=== PATIENT | male | born 1995 | race Caucasian/White ===

== ENCOUNTER 2017-01-04 21:10 | Emergency (ER) | payer OTHER ==
[2017-01-04 21:22] VITALS: TEMP 36.8
[2017-01-04] MEDS ORDERED: LORAZEPAM 2 MG/ML 1 ML VIAL IM STA (21:36)
[2017-01-04] MEDS ORDERED: HALOPERIDOL LACTATE 5 MG/ML 1 ML VIAL IM STA (21:36)
[2017-01-04 21:40] VITALS: O2SAT 95
--- NOTE | 2017-01-04 22:19 | DIAGNOSTIC IMAGING REPORT ---
CT OF THE HEAD WITHOUT CONTRAST CLINICAL HISTORY: ETOH. Possible head injury. COMPARISON STUDY: No previous studies for comparison. CT DOSE: 601.98 mGy.cm TECHNIQUE: Helical axial images of the head were obtained without IV contrast. Automated exposure control was utilized for the study. A dose lowering technique was utilized adhering to the principles of ALARA. FINDINGS: Positioning on this exam was difficult. No acute intracranial hemorrhage, midline shift or mass effect is present. Basilar cisterns are patent. There are no extra-axial collections. Santiago-white differentiation is maintained. Sensitivity for detection of nondisplaced calvarial fractures is diminished but none are identified. Visualized portions of the sinuses and the mastoid air cells are clear. IMPRESSION: 1. Study mildly compromised given difficulty positioning. No acute intracranial findings. 2. No calvarial fracture identified although sensitivity for detection of nondisplaced calvarial fractures is diminished on this study. Electronically signed by: Azam Rosales M.D. 01/04/2017 10:17 PM Dictated Date/Time: 01/04/2017 10:14 PM
[2017-01-04 22:20] LABS: BLOOD UREA NITROGEN 6 mg/dl (7-18); BUN/CREATININE RATIO 6.9 (10-20); CALCIUM 9.1 mg/dl (8.5-10.1); CARBON DIOXIDE 26 mmol/L (21-32); CHLORIDE 104 mmol/L (98-107); CREATININE 0.86 mg/dl (0.60-1.40); GLUCOSE 120 mg/dl (70-99); POTASSIUM 3.1 mmol/L (3.5-5.1); SODIUM 138 mmol/L (136-145)
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
[2017-01-05 05:44] VITALS: BP 99/64; PULSE 93; O2SAT 95
== END 2017-01-05 06:02 | disposition home or self-care (01) ==
LOC: EDBD 21:10 → C.EDA 21:13
DX: F10.129 Alcohol abuse with intoxication, unspecified (principal); Y90.8 Blood alcohol level of 240 mg/100 ml or more; S09.90XA Unspecified injury of head, initial encounter; W01.0XXA Fall on same level from slipping, tripping and stumbling without subsequent striking against object, initial encounter

== ENCOUNTER 2017-07-19 16:35 | Emergency (ER) | payer OTHER ==
[~2017-07-19] VITALS: Ht 177.8 cm; Wt 66.7 kg
[2017-07-19 16:40] VITALS: TEMP 36.6; Ht 177.8 cm; Wt 66.7 kg
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
--- NOTE | 2017-07-19 17:14 | DIAGNOSTIC IMAGING REPORT ---
R FINGER(S) MIN 2 VIEWS ROUTINE HISTORY: 21 years-old Male eval for fx, rt index finger acute right index finger pain COMPARISON: None available TECHNIQUE: 3 views of the right fingers with attention to the second digit FINDINGS: No acute fracture, dislocation, significant degenerative changes or opaque foreign body. IMPRESSION: No acute fracture or dislocation. The above report was generated using voice recognition software. It may contain grammatical, syntax or spelling errors. Electronically signed by: Vikram Wei M.D. 07/19/2017 5:13 PM Dictated Date/Time: 07/19/2017 5:11 PM
--- NOTE | 2017-07-19 17:15 | DIAGNOSTIC IMAGING REPORT ---
L KNEE 1 OR 2 VIEWS ROUTINE HISTORY: 21 years-old Male eval for trauma acute left knee pain status post trauma COMPARISON: None available TECHNIQUE: 2 views of the left knee FINDINGS: No acute fracture, dislocation, significant degenerative changes or osteochondral defect. No large joint effusion or opaque foreign body. IMPRESSION: No acute bony abnormality. The above report was generated using voice recognition software. It may contain grammatical, syntax or spelling errors. Electronically signed by: Vikram Wei M.D. 07/19/2017 5:14 PM Dictated Date/Time: 07/19/2017 5:13 PM
--- NOTE | 2017-07-19 17:16 | DIAGNOSTIC IMAGING REPORT ---
CHEST ONE VIEW PORTABLE HISTORY: 21 years-old Male CHEST PAIN acute atypical chest pain COMPARISON: None available TECHNIQUE: Portable AP view of the chest FINDINGS: Cardiomediastinal and hilar silhouettes are within normal limits. There is no pneumothorax, oral effusion, focal airspace consolidation or overt pulmonary edema. The bones of the chest appear grossly intact. IMPRESSION: Normal chest radiograph. The above report was generated using voice recognition software. It may contain grammatical, syntax or spelling errors. Electronically signed by: Vikram Wei M.D. 07/19/2017 5:15 PM Dictated Date/Time: 07/19/2017 5:14 PM
[2017-07-19] MEDS ORDERED: AMPH30CA3 PO (17:28)
[2017-07-19 17:44] VITALS: BP 119/72; PULSE 88; O2SAT 98
== END 2017-07-19 17:48 | disposition home or self-care (01) ==
LOC: EDBD 16:35 → C.EDA 16:38
DX: S80.02XA Contusion of left knee, initial encounter (principal); S60.021A Contusion of right index finger without damage to nail, initial encounter; V43.62XA Car passenger injured in collision with other type car in traffic accident, initial encounter; Y92.488 Other paved roadways as the place of occurrence of the external cause; R07.81 Pleurodynia; F17.200 Nicotine dependence, unspecified, uncomplicated